=== PATIENT | female | born 1980 | race Caucasian/White ===

== ENCOUNTER → 2022-11-22 09:48 | Outpatient (BNVA) | payer OTHER, SELFPAY | PROVIDERS: PCP Internal Medicine; Visit Provider Physician Assistant Surgical ==

== ENCOUNTER 2022-11-25 20:38 | Emergency (ER) | payer OTHER, SELFPAY ==
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
[2022-11-25 21:27] VITALS: BP 115/60; PULSE 88; RESP 18; TEMP 36.1; O2SAT 99; BMI 37.2
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
[2022-11-26] MEDS: Ketorolac Tromethamine 30 MG/ML VIAL IM (01:41)
[2022-11-26] MEDS: Lidocaine 4 % Patch ADH..PATCH 1 PATCH TRANSDERMA (01:42)
== END 2022-11-26 01:45 | disposition home or self-care (01) ==
PROVIDERS: Emergency Provider Internal Medicine; PCP Internal Medicine
DX: Z04.1 Encounter for examination and observation following transport accident (principal); M54.2 Cervicalgia; M54.50 Low back pain, unspecified; M25.521 Pain in right elbow
CPT/HCPCS: 72070; 72100; 73070; 96372; 99284; J1885

== ENCOUNTER 2022-12-27 08:56 | Outpatient (AMB) | payer OTHER, SELFPAY ==
--- NOTE | 2022-12-27 08:58 | MHC.OFFVISWM ---
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 She heard about our program from an appointment w her ashish who had an appt w Dr Brewster. Her goal is to lose weight and achieve a healthy lifestyle as well as to improve, if not resolve, obesity related medical conditions, including DM. She reports first being concerned about her weight for ever, highest weight to date was 280. Current weight is 214.6 pounds with a BMI of 36.8. She has tried multiple methods of weight loss including fad diets without permanent results. She lives with ashish and 2 sons. She does not currently work. She wakes at:?630 am, and goes to bed at?10 pm. Dinner is at 6 pm. Breakfast: skip or protein shake (premier protein RTD or powder) AM snack: donuts Lunch: sandwich, guamanian fries PM snack: granola bar, mixed nuts, fruit snacks Dinner: rice, meat, pasta, beef, veg, restaurant food After dinner: chips, popcorn, candy Other snacks: as above Liquids: 96 oz water daily, 12 oz coke 1 x per week, lemon-aid, 32 oz weekly Alcohol/marijuana/tobacco intake: none Exercise: walking outside, gym membership at [facility] GERD score: 0 BREN score: 6 ESS score: 8 QOL score: 91 [facility] Surgical History (Updated 12/27/22 @ 10:19 by SHILPI Mendez) Hx of section Hx of wisdom tooth extraction S/P tubal ligation Family History Mother Diabetes Father No problems noted. Brother No problems noted. Sister No problems noted. Sister No problems noted. Son No problems noted. Son No problems noted. Son No problems noted. Social History Alcohol intake: never Patient Tobacco Use Status: Never used Tobacco Review of Systems Const All systems reviewed & are unremarkable except as noted in HPI and below Physical Exam Vital Signs: Last Vital Signs Temp 98.1 F 12/27/22 09:05 Pulse 93 12/27/22 09:05 BP 113/56 L 12/27/22 09:05 Pulse Ox 97 12/27/22 09:05 Oxygen Delivery Method Room Air 12/27/22 09:05 BMI result Body Mass Index 36.8 Const General: cooperative, healthy appearing and no acute distress Orientation/consciousness: patient oriented x3 HEENT Head: Yes normal to inspection Ears: hearing grossly normal bilaterally General nose exam: Normal external nose present Face and sinus: Yes normal facial exam Eyes General: appearance normal, both eyes and all related structures Resp Effort & Inspection: normal respiratory effort Auscultation: clear to auscultation bilaterally Cardio Rate: regular rate Rhythm: regular rhythm Heart sounds: S1 normal heart sound present and S2 normal heart sound present GI Inspection: Yes normal to inspection, No distended and Yes obesity Palpation (GI): Soft to palpation, nontender and no guarding Auscultation: normal bowel sounds Skin General skin exam: no rashes or lesions noted Neuro General: patient oriented x3 Extrem General: No edema Psych Appearance: grossly normal Mental Status: mental status grossly normal Speech and movement: Normal speech and movement present Affect: normal affect Attitude: cooperative Assessment & Plan Assessment & Plan (1) Obesity (BMI 30-39.9): Code(s): E66.9 - Obesity, unspecified Plan: This is a?42 yo female who will start our [facility] program to prepare for bariatric surgery.? Blood work, h pylori , CXR, ECG, Abd US and UGI have been ordered. She is being scheduled for RD and BH initial consultations. She will start SWL classes and watch the first three videos before her next appointment. ? Adequate sleep of 7-8 hours per night discussed, awakening at 630 am and going to bed at 10 pm ? Purchase body composition analyzer scale (Olvin caceres or Margarita recommended) and check weight weekly. The best time to do this is first thing in the morning after going to the bathroom. 1. Nutritional counseling: Be sure to careful read the number of scoops per shake Start with 3 Premier protein shakes ([employer], [employer], [employer]), (1 scoop in 8 oz low fat unsweetened almond milk or water each) First shake at 730am-930am, Second shake at 1130am-130pm 1 protein bar (Fit Crunch bars (be sure to get the 190 calorie bar, not the 280 calorie bar) at [employer], [facility], or [employer]) at 230pm-430pm. Dinner at 6pm (9 forks of protein and 9 forks of salad/vegetables). Meal to include lean meat (beef, fish, pork, turkey, chicken), cooked vegetables or a salad with olive oil and/or fruits (berries, pears, apples, kiwi). Avoid salt, breads, potatoes, rice, pasta, desserts. Another shake with 1 scoop in 8 oz unsweetened almond milk at 8pm-10pm. Try to drink 64 oz of water daily and avoid soda and juices. ?2. Each shake would be drunk slowly, like coffee in a period of 2 hours. ?3. Cut each bar in 4 pieces and eat each piece in 30 min ?to make each bar last 2 hours. ?4. I emphasized the importance of measuring accurately the food portion and measure it carefully when serving the food on the plate ?5. The meal portions include 9 full-size forks of meat and 9 full-size forks of salad. You always eat the meat portion but you can replace up to half of the forks of salad/vegetables with rice, potatoes or pasta, or a fruit ?if you like. The less you do it the better weight loss will be. ?6. One full-size fork is what can be scooped on the fork without falling aside and not what can be bit with the fork. Use regular forks like those you find in a typical restaurant. ?7.? Please send me weight measurements as soon as possible and then once a week. Always include your diet and exercise plan. Alternatively come weekly at the office for weight checks and send me the measurements. ?8. Exercise counseling: Begin by watching a stretching for beginners video. Start slowly and begin to stretch your muscles. You should do this before and after each exercise session to prevent injury. Please return to [facility] gym near your home. Ask the business project manager or one of the trainers how to use the machines if you are unfamiliar with them. Start elliptical with a resistance of 2. Increase resistance by 1 every 3 min to your most comfortable resistance with a max resistance of 8. Reduce the resistance by 1 every 3 minutes back down to 2 and repeat cycles for 300 calories. Alternatively, start treadmill with a speed of 3.0 and incline of 0, increasing incline by 1 every 3 minutes to the highest comfortable level (max 6 for now) then decrease in the same fashion. Repeat process to a goal of 300 calories. Goal of 2000 calories burned or more weekly. You may also consider use of the stationary bike. The easiest would be to chose the fat-burn or interval training program on the machine and do this until you reach the 300 calorie goal. Alternatively, you can manually adjust the resistance in a similar fashion as mentioned above, (resistance of 2-8 with a goal speed of 12 mph). Tracking calories is essential. 9. Alternatively start walking outside daily, tracking calories with a goal of 300 calories per day, daily. You can download the donny RF nano which can track your time, distance and calories while walking outside. You press start in the donny when you start and then stop when you are finished. 10.? It is important to communicate with me by text weekly 11. Please get labs, EKG and chest X-Ray within 1 week. 12. Discussed and answered all questions regarding?obtained consent to participate in the [facility]?Registry. 13. Please follow the diet plan exactly, without any change. If you do not like something about the plan or you feel hungry, you need to communicate with me so I can help you revise the plan. You should not change the plan yourself. Text me at [phone] 14. Goal is to lose at least 12 pounds in the first month 15. Goal is to lose 10% of your weight before surgery, which is about 21 lbs. Ultimate weight goal: 193 lbs before surgery Patient is morbidly obese and is not considered stable at this time.?I spent a total of 70 minutes reviewing/updating records, examining the patient and counseling the patient on weight management as detailed above. (2) Diabetes: Code(s): E11.9 - Type 2 diabetes mellitus without complications Plan: check sugars BID once starting meal plan Orders: Orders Vitamin B12 and Folate Today E11.9 - Type 2 diabetes mellitus without complications, E66.9 - Obesity, unspecified Comprehensive Met. Panel Today E11.9 - Type 2 diabetes mellitus without complications, E66.9 - Obesity, unspecified C Reactive Protein Today E11.9 - Type 2 diabetes mellitus without complications, E66.9 - Obesity, unspecified Ferritin Today E11.9 - Type 2 diabetes mellitus without complications, E66.9 - Obesity, unspecified Hemoglobin A1c Today E11.9 - Type 2 diabetes mellitus without complications, E66.9 - Obesity, unspecified Insulin Today E11.9 - Type 2 diabetes mellitus without complications, E66.9 - Obesity, unspecified IRON PROFILE Today E11.9 - Type 2 diabetes mellitus without complications, E66.9 - Obesity, unspecified Lipid Panel Today E11.9 - Type 2 diabetes mellitus without complications, E66.9 - Obesity, unspecified PTHI Today E11.9 - Type 2 diabetes mellitus without complications, E66.9 - Obesity, unspecified TSH reflex Free T4 Today E11.9 - Type 2 diabetes mellitus without complications, E66.9 - Obesity, unspecified Vitamin A Today E11.9 - Type 2 diabetes mellitus without complications, E66.9 - Obesity, unspecified Vitamin B1 Today E11.9 - Type 2 diabetes mellitus without complications, E66.9 - Obesity, unspecified Vitamin D 25-OH Total Today E11.9 - Type 2 diabetes mellitus without complications, E66.9 - Obesity, unspecified Zinc Today E11.9 - Type 2 diabetes mellitus without complications, E66.9 - Obesity, unspecified ECG 12 lead EKG Today E11.9 - Type 2 diabetes mellitus without complications, E66.9 - Obesity, unspecified FL upper GI w air Today E11.9 - Type 2 diabetes mellitus without complications, E66.9 - Obesity, unspecified Complete Blood Count Auto Diff Today E11.9 - Type 2 diabetes mellitus without complications, E66.9 - Obesity, unspecified H Pylori Breath Test Today E11.9 - Type 2 diabetes mellitus without complications, E66.9 - Obesity, unspecified US abdomen comp w elastography Today E11.9 - Type 2 diabetes mellitus without complications, E66.9 - Obesity, unspecified XR chest 2V Today E11.9 - Type 2 diabetes mellitus without complications, E66.9 - Obesity, unspecified Referrals Behavioral Health Referral E11.9 - Type 2 diabetes mellitus without complications, E66.9 - Obesity, unspecified Nutrition/Dietitian Referral E11.9 - Type 2 diabetes mellitus without complications, E66.9 - Obesity, unspecified Coding Level of Care Code New Pt Level 5 (61744) Diagnoses Obesity (BMI 30-39.9) E66.9 Diabetes E11.9 Time Spent (min) 70
[2022-12-27 09:05] VITALS: BP 113/56; PULSE 93; TEMP 36.7; O2SAT 97; BMI 36.8
[2022-12-30 14:27] LABS: H Pylori Breath Test Negative (Negative)
== END 2022-12-27 11:21 | disposition home or self-care (01) ==
PROVIDERS: PCP Internal Medicine; Visit Provider Physician Assistant Surgical
DX: E66.9 Obesity, unspecified (principal); Z68.36 Body mass index [BMI] 36.0-36.9, adult; E11.9 Type 2 diabetes mellitus without complications
CPT/HCPCS: 99205

== ENCOUNTER → 2022-12-27 08:56 | Outpatient (BNVA) | payer OTHER, SELFPAY | PROVIDERS: PCP Internal Medicine; Visit Provider Physician Assistant Surgical | DX: E66.9 Obesity, unspecified (principal); Z68.36 Body mass index [BMI] 36.0-36.9, adult; E11.9 Type 2 diabetes mellitus without complications; Z11.0 Encounter for screening for intestinal infectious diseases | CPT/HCPCS: 36415; 83013; 99202; 99211 ==